=== PATIENT | female | born 1980 | race American Indian/Alaskan Native ===

== ENCOUNTER 2017-09-03 18:02 | Emergency (ER) | payer BC ==
[2017-09-03 21:57] VITALS: BP 119/56
[2017-09-04] MEDS ORDERED: NORCO 10/325 PO ONE (00:42)
[2017-09-04] MEDS ORDERED: ZOFRAN ODT PO ONE (00:42)
[2017-09-04 00:52] LABS: HCG Qualitative,Urine Negative (Negative)
[2017-09-04 00:58] LABS: Bilirubin,Urine NEG (Negative); Blood,Urine NEG (Negative); Color,Urine Yellow (Yellow); Mucus,Urine 3+ /HPF; Protein,Urine <15 mg/dL mg/dL (Negative)
--- NOTE | 2017-09-04 01:28 | XRay Report ---
FINAL REPORT EXAM: XR SPINE LUMBOSACRAL 2-3V HISTORY: lower back pain TECHNIQUE: Three views of the lumbar spine were submitted. FINDINGS: The disc heights and alignment appear normal. There is no evidence of fracture. The SI joints appear normal. The soft tissues well maintained. IMPRESSION: Within normal limits.
--- NOTE | 2017-09-04 01:48 | Emergency Department Report ---
ED Back Pain/Injury HPI - General Chief Complaint: Back Pain/Injury Stated Complaint: BACK/ABD PAIN Time Seen by Provider: 09/04/17 00:41 Source: patient Limitations: No Limitations - History of Present Illness Initial Comments: 37-year-old female past medical history obesity presents with complaint of lower back pain for over one week intermittent sharp somewhat radiating to the left and right buttocks. Patient states she has some tingling associated with it. Denies any saddle paresthesias denies any bladder or bowel incontinence. Patient is ambulatory without assistance. Denies any trauma to back denies any fevers or chills denies any dysuria. Patient is ambulating without assistance. States she was seen in another emergency department a week ago and given ibuprofen with Flexeril with minimal relief of her symptoms. Patient is concerned she may have a UTI because of lower back pain. Denies any vaginal bleeding. Denies any vaginal discharge. Pain is currently a 5 out of 10. Slightly worse with certain movements including abdominal crunches and extending her left thigh. Denies any falls or trauma denies any IV drug use. MD Complaint: back pain Onset/Timin -: days(s) Place: home Radiation: buttocks, left leg Severity: moderate Severity scale (0 -10): 5 Quality: sharp, aching Consistency: intermittent Improves With: immobilization Worsens With: movement Context: turning/twisting, bending Associated Symptoms: denies other symptoms - Related Data Home Medications Medication Instructions Recorded Confirmed Last Taken Formula Tablet 1 PO DAILY 10/03/14 10/03/14 10/03/14 Previous Rx's Medication Instructions Recorded Last Taken Type metroNIDAZOLE 500 mg PO BID #20 tablet 07/13/14 10/03/14 Rx Acetaminophen/Codeine [Tylenol #3] 1 tab PO Q6H PRN #15 tab 10/03/14 Unknown Rx Acetaminophen/Codeine [Tylenol 1 tab PO Q6H PRN #12 tab 09/04/17 Unknown Rx /Codeine # 3 tab] Allergies Allergy/AdvReac Type Severity Reaction Status Date / Time No Known Allergies Allergy Verified 05/07/13 07:59 ED Review of Systems ROS: Stated complaint: BACK/ABD PAIN Other details as noted in HPI Constitutional: denies: chills, fever Eyes: denies: eye pain, eye discharge, vision change ENT: denies: ear pain, throat pain Respiratory: denies: cough, shortness of breath, wheezing Cardiovascular: denies: chest pain, palpitations Endocrine: no symptoms reported Gastrointestinal: denies: abdominal pain, nausea, diarrhea Genitourinary: denies: urgency, dysuria, discharge Musculoskeletal: back pain (over 1 week of lower back pain radiating to left buttock). denies: joint swelling, arthralgia Skin: denies: rash, lesions Neurological: denies: headache, weakness, paresthesias Psychiatric: denies: anxiety, depression Hematological/Lymphatic: denies: easy bleeding, easy bruising ED Past Medical Hx - Past Medical History Previous Medical History?: Yes Hx Hypertension: No Hx Heart Attack/AMI: No Hx Congestive Heart Failure: No Hx Diabetes: No Hx Deep Vein Thrombosis: No Hx Renal Disease: No Hx Sickle Cell Disease: No Hx Seizures: No Hx Asthma: No Hx COPD: No Hx HIV: No Additional medical history: , Miscarriage, Vaginal delivery x 4 - Surgical History Past Surgical History?: Yes Additional Surgical History: Cervical cerclage x 3 - Social History Smoking Status: Never Smoker Substance Use Type: None - Medications Home Medications: Home Medications Medication Instructions Recorded Confirmed Last Taken Type metroNIDAZOLE 500 mg PO BID #20 tablet 07/13/14 10/03/14 10/03/14 Rx Acetaminophen/Codeine [Tylenol #3] 1 tab PO Q6H PRN #15 tab 10/03/14 Unknown Rx Formula Tablet 1 PO DAILY 10/03/14 10/03/14 10/03/14 History Acetaminophen/Codeine [Tylenol 1 tab PO Q6H PRN #12 tab 09/04/17 Unknown Rx /Codeine # 3 tab] ED Physical Exam - General Limitations: No Limitations General appearance: alert, in no apparent distress - Head Head exam: Present: atraumatic, normocephalic - Eye Eye exam: Present: normal appearance, PERRL, EOMI - ENT ENT exam: Present: mucous membranes moist - Neck Neck exam: Present: normal inspection - Respiratory Respiratory exam: Present: normal lung sounds bilaterally. Absent: respiratory distress - Cardiovascular Cardiovascular Exam: Present: regular rate, normal rhythm. Absent: systolic murmur, diastolic murmur, rubs, gallop - GI/Abdominal GI/Abdominal exam: Present: soft, normal bowel sounds - Rectal Rectal exam: Present: normal rectal tone - Extremities Exam Extremities exam: Present: normal inspection - Back Exam Back exam: Present: normal inspection - Neurological Exam Neurological exam: Present: alert, oriented X3, CN II-XII intact, normal gait - Expanded Neurological Exam Expanded Patient oriented to: Present: person, place, time Cranial nerves: EOM's Intact: Normal, Facial Sensation: Normal Cerebellar function: Finger to Nose: Normal, Romberg: Normal Sensory exam: Upper Extremity Light Touch: Normal, Lower Extremity Light Touch: Normal Motor strength exam: RUE: 5, LUE: 5, RLE: 5, LLE: 5 Best Eye Response (Olar): (4) open spontaneously Best Motor Response (Triston): (6) obeys commands Best Verbal Response (Olar): (5) oriented Triston Total: 15 - Psychiatric Psychiatric exam: Present: normal affect, normal mood - Skin Skin exam: Present: warm, dry, intact, normal color. Absent: rash ED Course Vital Signs 09/03/17 21:51 Temperature 97.9 F Pulse Rate 93 H Respiratory 16 Rate Blood Pressure 119/56 O2 Sat by Pulse 100 Oximetry ED Medical Decision Making - Medical Decision Making A/P: Sciatica, lumbar radiculopathy, back pain 1-no clinical signs of cauda equina.Cranial nerves 2, 3, 4, 5, 6, 7, 8,10, 11, 12 intact on clinical exam, patient is fully lucid awake alert and oriented 3 conversant. Pt independently ambulatory without assistance upon discharge 2-patient experienced significant relief with one dose of Ellerbe. Give short course of codeine when necessary for pain patient continued to take Motrin as well that she was artery prescribed. 3-I referred patient to primary care and orthopedics and neurosurgery for follow -up. I advised her to return to the ED for any fevers and chills paralysis and inability to walk or loss of bladder/bowel control. 4- educated her on signs and symptoms of sciatica and lumbar radiculopathy Critical care attestation.: If time is entered above; I have spent that time in minutes in the direct care of this critically ill patient, excluding procedure time. ED Disposition Clinical Impression: Sciatica of left side Disposition: - TO HOME OR SELFCARE Is pt being admited?: No Does the pt Need Aspirin: No Condition: Stable Instructions: Sciatica (ED), Lumbar Radiculopathy (ED) Prescriptions: Acetaminophen/Codeine [Tylenol /Codeine # 3 tab] 1 tab PO Q6H PRN #12 tab PRN Reason: Pain Referrals: GEOFFREY LEPE MD [Primary Care Provider] - 3-5 Days CARMINE MUSTAFA MD [Staff Physician] - 3-5 Days [facility] [Provider Group] - 3-5 Days Forms: Work/School Release Form(ED) Time of Disposition: 01:48
== END 2017-09-04 01:55 | disposition home or self-care (01) ==
LOC: ED 18:02
DX: M54.32 Sciatica, left side (principal)
CPT/HCPCS: 72100; 81001; 81025; 99284; Q0162

== ENCOUNTER 2019-06-09 11:52 | Day surgery (SDC) | payer BC, MEDICAID ==
[2019-06-09] MEDS ORDERED: LACTATED RINGERS 1,000 ML IV SCH (13:00)
--- NOTE | 2019-06-09 13:21 | Short Stay Summary ---
Short Stay Documentation Date of service: 06/09/19 Narrative H&P: Pt is a 39yo BF EDC 11/12/19; EGA 17 5/7 weeks presents for cervical cerclage placement due to history of Incompetent cervix - History Principal diagnosis: IUP @ 17 5/7 weeks; Incompetent cervix H&P: obtained from office Past Medical History: No medical history Past Surgical History: Other (Cervical cerclage) Social history: no significant social history, - Allergies and Medications Current Medications: Allergies No Known Allergies Allergy (Verified 05/07/13 07:59) Home Medications Medication Instructions Recorded Confirmed Last Taken Type metroNIDAZOLE 500 mg PO BID #20 tablet 07/13/14 10/03/14 10/03/14 Rx Acetaminophen/Codeine [Tylenol #3] 1 tab PO Q6H PRN #15 tab 10/03/14 Unknown Rx Formula Tablet 1 PO DAILY 10/03/14 10/03/14 10/03/14 History Acetaminophen/Codeine [Tylenol 1 tab PO Q6H PRN #12 tab 09/04/17 Unknown Rx /Codeine # 3 tab] Active Medications Lactated Ringer's (Lactated Ringers) 1,000 mls @ 125 mls/hr IV DIRECT BALBIR Cefazolin Sodium (Ancef/Sterile Water 2 Gm/20 Ml) 2 gm in 20 mls @ 80 mls/hr IV PREOP NR; Protocol - Physical exam General appearance: no acute distress Lungs: Clear to auscultation Breasts: deferred Heart: Regular rate Gastrointestinal: normal Female Genitourinary: deferred Rectal Exam: deferred Extremities: no ischemia, No edema Neurological: Normal gait, Normal speech - Brief post op/procedure progress note Date of procedure: 06/09/19 Pre-op diagnosis: IUP @ 17 5/7 weeks; Incompetent cervix Post-op diagnosis: same Procedure: Cervical cerclage placement Anesthesia: spinal Findings: An 18 weeks size uterus. Cervix 1cm/long/thick. No evidence of ROM Surgeon: LARISSA METZGER Estimated blood loss: minimal Pathology: none Condition: stable - Hospital course Hospital course: Unremarkable. Pt tolerated an uncomplicated cervical cerclage placement. - Disposition Condition at discharge: Good Disposition: DC-01 TO HOME OR SELFCARE - Discharge Diagnoses (1) 17 weeks gestation of Status: Acute (2) Incompetent cervix Status: Resolved Short Stay Discharge Plan Activity: other (Nothing per vagina x 2 weeks) Diet: regular Follow up with: LARISSA METZGER MD [Primary Care Provider] - 7 Days Prescriptions: Ampicillin 500 mg PO Q6H #20 capsule HYDROcodone/APAP 5-325 [Meno 5-325 mg TAB] 1 each PO Q6H PRN #20 tablet PRN Reason: Pain, Moderate (4-6)
[2019-06-09] MEDS ORDERED: FAMOTIDINE 20 MG/2 ML INJ IV ONE (13:28)
[2019-06-09] MEDS ORDERED: BICITRA ORAL LIQD 30ML ONE (13:28)
[2019-06-09] MEDS ORDERED: METOCLOPRAMIDE 10 MG/2 ML INJ ONE (13:28)
[2019-06-09] MEDS ORDERED: METOCLOPRAMIDE 10 MG/2 ML INJ IV PRN (14:00)
[2019-06-09] MEDS ORDERED: FAMOTIDINE 20 MG/2 ML INJ IV SCH (14:00)
[2019-06-09] MEDS ORDERED: ceFAZolin/Water 2 GM/20 ML 2 GM/20 ML SYRINGE IV NR (14:00)
[2019-06-09] MEDS ORDERED: BICITRA ORAL LIQD 30ML PO NR (14:00)
[2019-06-09 14:23] LABS: Hematocrit 37.3 % (30.3-42.9); Hemoglobin 12.1 gm/dl (10.1-14.3); Mean Corpuscular HGB Conc 33 % (30-34); Mean Corpuscular Volume 87 fl (79-97); Platelet Count 278 K/mm3 (140-440); Red Blood Count 4.29 M/mm3 (3.65-5.03); Red Cell Distribution Width 13.8 % (13.2-15.2)
--- NOTE | 2019-06-09 14:27 | Anesthesia Day of Surgery ---
Anesthesia Day of Surgery - Day of Surgery Patient Examined: Yes Patient H&P Reviewed: Yes Patient is NPO: Yes Beta Blockers: No Cardiac Clearance: No Pulmonary Clearance: No Felice's Test: N/A
--- NOTE | 2019-06-09 14:30 | Anesthesia Consultation ---
Anesthesia Consult and Med Hx Date of service: 06/09/19 - Airway Anesthetic Teeth Evaluation: Poor ROM Head & Neck: Adequate Mental/Hyoid Distance: Adequate Mallampati Class: Class III Intubation Access Assessment: Probably Good - Pulmonary Exam CTA: Yes - Cardiac Exam Cardiac Exam: RRR - Pre-Operative Health Status ASA Pre-Surgery Classification: ASA2 Proposed Anesthetic Plan: Spinal - Pulmonary Hx Smoking: No Hx Asthma: No Hx Respiratory Symptoms: No SOB: No COPD: No Home Oxygen Therapy: No Hx Pneumonia: No Hx Sleep Apnea: No - Cardiovascular System Hx Hypertension: No Hx Coronary Artery Disease: No Hx Heart Attack/AMI: No Hx Angina: No Hx Percutaneous Transluminal Coronary Angioplasty (PTCA): No Hx Cardia Arrhythmia: No Hx Pacemaker: No Hx Internal Defibrillator: No Hx Valvular Heart Disease: No Hx Heart Murmur: No Hx Peripheral Vascular Disease: No - Central Nervous System Hx Neuromuscular Disorder: No Hx Seizures: No CVA: No Hx Back Pain: No Hx Psychiatric Problems: No - Gastrointestinal Hx Ulcer: No Hx Gastroesophageal Reflux Disease: No - Endocrine Hx Renal Disease: No Hx End Stage Renal Disease: No Hx Cirrhosis: No Hx Liver Disease: No Hx Insulin Dependent Diabetes: No Hx Non-Insulin Dependent Diabetes: No Hx Thyroid Disease: No Hx Hypothyroidism: No Hx Hyperthyroidism: No - Hematic Hx Anemia: No Hx Sickle Cell Disease: No - Other Systems Hx Alcohol Use: No Hx Substance Use: No Hx Cancer: No Hx Obesity: Yes
[2019-06-09] MEDS ORDERED: KETOROLAC 30 MG/1 ML INJ IV PRN (14:31)
[2019-06-09] MEDS ORDERED: ONDANSETRON 4 MG/2 ML INJ IV PRN (14:31)
[2019-06-09] MEDS ORDERED: ceFAZolin/STERILE WATER 2 GM/20 ML SYRINGE IV ONE (14:45)
[2019-06-09] MEDS ORDERED: BUPIVACAINE /DEX-WATER 0.75% (2 ML) AMPULE INFILTRATI ONE (15:31)
[2019-06-09] MEDS ORDERED: PHENYLEPHRINE/NS 1,000 MCG/10 ML SYRINGE (OR USE) IV ONE (15:32)
[2019-06-09] MEDS ORDERED: LIDOCAINE MPF (2%) 20 MG/1 ML VIAL 5 ML ONE (15:32)
--- NOTE | 2019-06-09 15:37 | Operative Report ---
Operative Report Operative Report: Date of procedure: 06/09/2019 Pre-operative diagnosis: 1. Intrauterine is 17-5/7 weeks 2. Incom petent cervix Post-operative diagnosis: Same Procedure name(s): Cervical cerclage placement Surgeon: Tommy Gorman M.D. Electrical Engineering Technician: None Anesthesia: Yany Pool CRNA EBL: Minimal Findings: An 18 week size uterus with heart tones 147. Cervix appeared 1cm/long/thick Procedure: After the patient was correctly identified, she was prepped and draped in usual sterile fashion and placed in dorsolithotomy position. First the bladder was emptied using a straight catheter, and the speculum was placed in the vaginal vault. The anterior lip of the cervix was grasped using ring forceps, and the cerclage was performed using the Ethibond sutures starting at the 12:00 to 10 o'clock position, the 9:00 to the 7 o'clock position, the 6:00 to the 4 o'clock position, and the 3:00 to the 12 o'clock position. The suture was tied at the 12 o'clock position. There was no evidence of ruptured membranes. At this point the procedure was considered complete. All instruments are removed from the vagina. The patient tolerated the procedure well and was transferred to recovery in stable condition.
[2019-06-09] MEDS ORDERED: HYDROcodone/ACETAMINOPHEN 5-325 MG TAB PO PRN (15:46)
--- NOTE | 2019-06-09 15:48 | Post Anesthesia Evaluation ---
- Post Anesthesia Evaluation Patient Participated: Yes Airway Patent: Yes Stable Respiratory Function: Yes Nausea/Vomiting: No Temp > 96.8F: Yes Pain Manageable: Yes Adequeate Hydration: Yes Anesthesia Complications: No Block Receding Appropriately: Yes Patient on Ventilator: No
[2019-06-09 21:49] VITALS: BP 108/63
== END 2019-06-09 22:30 | disposition home or self-care (01) ==
LOC: LDOR 11:52 → LD 11:52 → LDOR 22:30
PROVIDERS: ATTEND Obstetrics & Gynecology
DX: O34.32 Maternal care for cervical incompetence, second trimester (principal); E66.9 Obesity, unspecified; Z3A.17 17 weeks gestation of pregnancy; Z79.899 Other long term (current) drug therapy; Z68.41 Body mass index [BMI] 40.0-44.9, adult
CPT/HCPCS: 36415; 59320; 85014; 85018; 85027; 86850; 86900; 86901; J0690; J1885; J2370; J2765; J7120

== ENCOUNTER 2021-02-06 01:41 | Emergency (ER) | payer BC, MEDICAID ==
[2021-02-06] MEDS ORDERED: IBUPROFEN 800 MG TAB PO ONE (03:25)
[2021-02-06] MEDS ORDERED: IBUPROFEN 800 MG TAB ONE (03:26)
[2021-02-06] MEDS ORDERED: HYDROcodone/ACETAMINOPHEN 5-325 MG TAB PO STA (04:35)
--- NOTE | 2021-02-06 04:52 | Emergency Department Report ---
ED General Adult HPI - General Chief complaint: Dental/Oral Stated complaint: TOOTHACHE/CHEST PRESSURE Time Seen by Provider: 02/06/21 03:58 Source: patient Mode of arrival: Ambulatory Limitations: No Limitations - History of Present Illness Initial comments: 40-year-old F Citizen Of [place] female BMI 44 but no past no history of reported hypertension presents emerged department complaining of a acute on chronic dental exacerbation complaining of dull throbbing pain to the left lower molar due to a previous dental fracture which now has become infected. Reports no fever, chills, sweats no hemoptysis hematemesis hematochezia no chest pain palpitations. Severity scale (0 -10): 10 - Related Data Home Medications Medication Instructions Recorded Confirmed Last Taken Formula Tablet 1 PO DAILY 10/03/14 10/03/14 10/03/14 Previous Rx's Medication Instructions Recorded Last Taken Type metroNIDAZOLE 500 mg PO BID #20 tablet 07/13/14 10/03/14 Rx Acetaminophen/Codeine [Tylenol #3] 1 tab PO Q6H PRN #15 tab 10/03/14 Unknown Rx Acetaminophen/Codeine [Tylenol 1 tab PO Q6H PRN #12 tab 09/04/17 Unknown Rx /Codeine # 3 tab] Ampicillin 500 mg PO Q6H #20 capsule 06/09/19 Unknown Rx HYDROcodone/APAP 5-325 [[place] 1 each PO Q6H PRN #20 tablet 06/09/19 Unknown Rx 5-325 mg TAB] Amoxicillin [Amoxicillin TAB] 875 mg PO BID #20 tablet 02/06/21 Unknown Rx Chlorhexidine Mouthwash [Peridex] 15 ml MM BID #1 bottle 02/06/21 Unknown Rx Ketorolac [Toradol] 10 mg PO Q6H PRN #15 tablet 02/06/21 Unknown Rx Lidocaine Viscous 2% 15 ml MM Q4H #240 udc 02/06/21 Unknown Rx Allergies Allergy/AdvReac Type Severity Reaction Status Date / Time No Known Allergies Allergy Verified 05/07/13 07:59 ED Review of Systems ROS: Stated complaint: TOOTHACHE/CHEST PRESSURE Other details as noted in HPI Comment: All other systems reviewed and negative ED Past Medical Hx - Past Medical History Previous Medical History?: Yes Hx Hypertension: No Hx Heart Attack/AMI: No Hx Congestive Heart Failure: No Hx Diabetes: No Hx Deep Vein Thrombosis: No Hx Liver Disease: No Hx Renal Disease: No Hx Sickle Cell Disease: No Hx Seizures: No Hx Asthma: No Hx COPD: No Hx HIV: No Additional medical history: , Miscarriage, Vaginal delivery x 4 - Surgical History Past Surgical History?: Yes Hx Pacemaker: No Hx Internal Defibrillator: No Additional Surgical History: Cervical cerclage x 3 - Social History Smoking Status: Never Smoker Substance Use Type: None - Medications Home Medications: Home Medications Medication Instructions Recorded Confirmed Last Taken Type metroNIDAZOLE 500 mg PO BID #20 tablet 07/13/14 10/03/14 10/03/14 Rx Acetaminophen/Codeine [Tylenol #3] 1 tab PO Q6H PRN #15 tab 10/03/14 Unknown Rx Formula Tablet 1 PO DAILY 10/03/14 10/03/14 10/03/14 History Acetaminophen/Codeine [Tylenol 1 tab PO Q6H PRN #12 tab 09/04/17 Unknown Rx /Codeine # 3 tab] Ampicillin 500 mg PO Q6H #20 capsule 06/09/19 Unknown Rx HYDROcodone/APAP 5-325 [[place] 1 each PO Q6H PRN #20 tablet 06/09/19 Unknown Rx 5-325 mg TAB] Amoxicillin [Amoxicillin TAB] 875 mg PO BID #20 tablet 02/06/21 Unknown Rx Chlorhexidine Mouthwash [Peridex] 15 ml MM BID #1 bottle 02/06/21 Unknown Rx Ketorolac [Toradol] 10 mg PO Q6H PRN #15 tablet 02/06/21 Unknown Rx Lidocaine Viscous 2% 15 ml MM Q4H #240 udc 02/06/21 Unknown Rx ED Physical Exam - General Limitations: No Limitations General appearance: alert, in no apparent distress - Head Head exam: Present: atraumatic, normocephalic - Eye Eye exam: Present: normal appearance, PERRL Pupils: Present: normal accommodation - ENT ENT exam: Present: normal exam, mucous membranes moist, other - Expanded ENT Exam Expanded Ear exam: Present: normal external inspection Teeth exam: Present: dental caries, fractured tooth # 1 - Fractured (Severe erosion), Dental Tenderness - Neck Neck exam: Present: normal inspection, full ROM - Respiratory Respiratory exam: Present: normal lung sounds bilaterally. Absent: respiratory distress, wheezes, rales, chest wall tenderness, accessory muscle use, decreased breath sounds - Cardiovascular Cardiovascular Exam: Present: regular rate, normal rhythm. Absent: systolic mur mur, diastolic murmur, rubs, gallop - GI/Abdominal GI/Abdominal exam: Present: soft, normal bowel sounds - Extremities Exam Extremities exam: Present: normal inspection - Back Exam Back exam: Present: normal inspection - Neurological Exam Neurological exam: Present: alert, oriented X3 - Psychiatric Psychiatric exam: Present: normal affect, normal mood - Skin Skin exam: Present: warm, dry, intact, normal color. Absent: rash ED Course Vital Signs 02/06/21 02/06/21 02/06/21 03:23 05:00 05:11 Temperature 98.3 F Pulse Rate 92 H 80 Respiratory 16 12 Rate Blood Pressure 160/105 Blood Pressure 128/82 [Left] O2 Sat by Pulse 100 99 98 Oximetry Critical care attestation.: If time is entered above; I have spent that time in minutes in the direct care of this critically ill patient, excluding procedure time. ED Disposition Clinical Impression: Dentalgia, Infected dental caries Disposition: HOME / SELF CARE / HOMELESS Is pt being admited?: No Does the pt Need Aspirin: No Condition: Stable Instructions: Dental Abscess, [id number], Acute Pain, Adult Prescriptions: Amoxicillin [Amoxicillin TAB] 875 mg PO BID #20 tablet Lidocaine Viscous 2% 15 ml MM Q4H #240 udc Chlorhexidine Mouthwash [Peridex] 15 ml MM BID #1 bottle Ketorolac [Toradol] 10 mg PO Q6H PRN #15 tablet PRN Reason: Pain Referrals: [facility] [Outside] - 3-5 Days PRIMARY CARE,MD [Primary Care Provider] - 3-5 Days
[2021-02-06 05:12] VITALS: BP 128/82
== END 2021-02-06 06:06 | disposition home or self-care (01) ==
LOC: ED 01:41
DX: K02.9 Dental caries, unspecified (principal)
CPT/HCPCS: 99282